=== PATIENT | female | born 1955 | race Caucasian/White ===

== ENCOUNTER 2017-09-02 13:33 | Day surgery (SDC) | payer OTHER ==
[2017-09-02] MEDS ORDERED: PROPOFOL 40 ML (17:16)
[2017-09-02] MEDS ORDERED: LIDOCAINE 2% (SDV) 5 ML INJ (17:16)
== END 2017-09-02 18:42 | disposition home or self-care (01) ==
LOC: GIL 13:33
DX: D12.4 Benign neoplasm of descending colon (principal); D12.5 Benign neoplasm of sigmoid colon; K31.9 Disease of stomach and duodenum, unspecified; K57.90 Diverticulosis of intestine, part unspecified, without perforation or abscess without bleeding; K64.8 Other hemorrhoids; K29.70 Gastritis, unspecified, without bleeding; K29.80 Duodenitis without bleeding
CPT/HCPCS: 43239; 88305; 88312